=== PATIENT | female | born 1985 | race Two or more races ===

== ENCOUNTER 2020-07-25 20:31 | Emergency (ER) | payer OTHER ==
[~2020-07-25] VITALS: Ht 160 cm; Wt 62.6 kg
[2020-07-25] MEDS ORDERED: PRENA1 TRUE CO1 EACH (20:42)
[2020-07-25] MEDS ORDERED: CLOTRIMAZOLE/BE15 GM TOP (20:52)
[2020-07-25] MEDS ORDERED: ALLEGRA ALLERG180 MG PO (20:52)
== END 2020-07-25 21:34 | disposition home or self-care (01) ==
LOC: ER 20:31
DX: R21 Rash and other nonspecific skin eruption (principal)

== ENCOUNTER → 2020-09-18 | Outpatient (CLI) | payer OTHER ==
[~2020-09-18] MED LIST: ALLEGRA ALLERG180 MG PO; CLOTRIMAZOLE/BE15 GM TOP; PRENA1 TRUE CO1 EACH
== END | disposition home or self-care (01) ==
LOC: PRENATAL 14:13
PROVIDERS: ATTEND Obstetrics & Gynecology Maternal & Fetal Medicine
DX: Z36.89 Encounter for other specified antenatal screening (principal); O36.80X1 Pregnancy with inconclusive fetal viability, fetus 1; O09.521 Supervision of elderly multigravida, first trimester; Z3A.12 12 weeks gestation of pregnancy

== ENCOUNTER 2024-08-12 22:49 | Emergency (ER) | payer OTHER ==
[~2024-08-12] VITALS: Ht 160 cm; Wt 63.5 kg
[2024-08-12] MEDS ORDERED: DULCOLAX5 MG PO (23:19)
[2024-08-13] MEDS ORDERED: FAMOtidine 10 MG/ML (4ML VIAL) IV PUSH STA (03:14)
[2024-08-13] MEDS ORDERED: 0.9 % SODIUM CHLORIDE 500 ML IV STA (03:14)
[2024-08-13] MEDS ORDERED: HYOSCYAMINE SULFATE 0.125 MG TAB.SUBL SL ONE (03:15)
[2024-08-13 04:43] LABS: HEMATOCRIT 37.3 % (36.0-45.00); HEMOGLOBIN 13.1 g/dL (12.0-15.00); MEAN CELL VOLUME 82.1 fL (80.00-100.00); MEAN CORPUSCULAR HEMOGLOBIN 28.9 pg (27.00-32.0); MEAN CORPUSCULAR HGB CONC 35.2 g/dl (32.0-36.0); PLATELET COUNT 306 K/uL (150-450); RED BLOOD COUNT 4.54 M/uL (4.00-6.00)
[2024-08-13 04:57] LABS: CALCIUM 8.2 mg/dL (8.5-10.1); CREATININE SERUM 0.74 mg/dL (0.55-1.02); GFR 87.37
[2024-08-13 05:03] LABS: POTASSIUM 2.8 mEq/L (3.5-5.1)
[2024-08-13] MEDS ORDERED: POTASSIUM CHLORIDE 10 MEQ CAPSULE PO STA (05:10)
== END 2024-08-13 07:52 | disposition home or self-care (01) ==
LOC: ER 22:51
DX: K80.20 Calculus of gallbladder without cholecystitis without obstruction (principal); K80.50 Calculus of bile duct without cholangitis or cholecystitis without obstruction; Z88.6 Allergy status to analgesic agent

== ENCOUNTER 2024-08-16 10:24 | Emergency (ER) | payer OTHER ==
[~2024-08-16] VITALS: Ht 160 cm; Wt 63.2 kg
[~2024-08-16 10:24] MED LIST changes: +DULCOLAX5 MG PO
[2024-08-16 12:13] LABS: CALCIUM 8.8 mg/dL (8.5-10.1); CREATININE SERUM 0.77 mg/dL (0.55-1.02); GFR 83.45; POTASSIUM 3.42 mEq/L (3.5-5.1)
== END 2024-08-16 12:46 | disposition home or self-care (01) ==
LOC: ER 10:27
PROVIDERS: General Practice
DX: E87.6 Hypokalemia (principal); Z88.6 Allergy status to analgesic agent; Z87.19 Personal history of other diseases of the digestive system

== ENCOUNTER 2024-08-23 09:43 | Day surgery (SDC) | payer OTHER ==
[2024-08-17 10:49] LABS: PH,URINE 5.5 (5.0-8.0); URINE APPEARANCE Clear; URINE BILIRRUBIN Negative (NEGATIVE); URINE BLOOD Trace; URINE COLOR Yellow; URINE GLUCOSE Negative (NEGATIVE); URINE KETONE Negative (NEGATIVE); URINE LEUKOCYTE Negative; URINE NITRATE Negative; URINE PROTEIN Trace (NEGATIVE); URINE UROBILINOGEN 0.2 E.U./dl
[2024-08-17 10:50] LABS: URINE BACTERIA 758.8 uL (0.0-1933); URINE EPITHELIAL CELLS 29.4 uL (0.0-38.8); URINE RBC 4.2 uL (0.0-20.8); URINE WBC 22.4 uL (0.0-23.2)
[2024-08-17 10:59] LABS: INR 1.04; PARTIAL THROMBOPLASTIN TIME 29.5 SECONDS (22.0-34.0); PROTHROMBIN TIME 11.3 SECONDS (9.0-11.5)
[2024-08-17 10:59] LABS: URINE CAST 0.73 uL (0.0-1.40)
[2024-08-17 11:01] LABS: HEMATOCRIT 41.5 % (36.0-45.00); MEAN CELL VOLUME 84.3 fL (80.00-100.00); MEAN CORPUSCULAR HEMOGLOBIN 28.6 pg (27.00-32.0); MEAN CORPUSCULAR HGB CONC 33.9 g/dl (32.0-36.0); PLATELET COUNT 343 K/uL (150-450); RED BLOOD COUNT 4.92 M/uL (4.00-6.00); RED CELL DISTRIBUTION WIDTH 14.8 % (11.5-14.5)
[2024-08-17 11:37] LABS: CALCIUM 8.8 mg/dL (8.5-10.1); CREATININE SERUM 0.72 mg/dL (0.55-1.02); GFR 90.18; POTASSIUM 3.27 mEq/L (3.5-5.1)
[~2024-08-23] VITALS: Ht 160 cm; Wt 63.5 kg
[2024-08-23] MEDS ORDERED: MIRALAX17 GM PO (11:14)
[2024-08-23] MEDS ORDERED: TYLENOL ARTHRI650 MG PO (11:14)
[2024-08-23] MEDS ORDERED: TRAMADOL HCL50 MG PO (11:14)
[2024-08-23] MEDS ORDERED: CEFAZOLIN SODIUM 1,000 MG VIAL IV ONE (14:15)
[2024-08-23] MEDS ORDERED: MORPHINE SULFATE 4 MG/ML VIAL IV ONE (16:10)
== END 2024-08-23 17:50 | disposition home or self-care (01) ==
LOC: CIR.AMB 09:43
PROVIDERS: ATTEND Surgery
DX: K80.10 Calculus of gallbladder with chronic cholecystitis without obstruction (principal); Z88.6 Allergy status to analgesic agent; F41.9 Anxiety disorder, unspecified; F41.0 Panic disorder [episodic paroxysmal anxiety]